=== PATIENT | female | born 1950 | race Two or more races ===

== ENCOUNTER 2016-06-27 15:45 | Emergency (ER) | payer MEDICARE, OTHER ==
[2016-06-27] MEDS ORDERED: ASPIRIN 81 MG CHEW TAB ONE (16:21)
== END 2016-06-27 19:56 | disposition home or self-care (01) ==
LOC: ER 15:45
DX: M94.0 Chondrocostal junction syndrome [Tietze] (principal); R06.02 Shortness of breath; I10 Essential (primary) hypertension; E03.9 Hypothyroidism, unspecified; Z79.82 Long term (current) use of aspirin
CPT/HCPCS: 36415; 71010; 80053; 82550; 83735; 84484; 85025; 85610; 85730; 93005